=== PATIENT | male | born 1995 | race Caucasian/White ===

== ENCOUNTER 2017-07-08 18:28 | Emergency (ER) | payer MEDICAID ==
[2017-07-08 18:35] VITALS: BP 145/75
--- NOTE | 2017-07-08 19:04 | EDPHY ---
H & P Time Seen by Provider: 07/08/17 18:35 HPI/ROS: HPI Fall, right-sided chest injury. 21-year-old male on foot. Patient was recently released from nursing home. He reports that while in the nursing home shower he slipped and fell and struck the right mid lateral aspect of his chest wall on a chair in the shower. He reports pain to this area. No difficulty breathing. Denies hitting his head. Denies any extremity pain or other injury. ROS: Constitutional: No fever, no chills. No weakness. Respiratory: No cough. No shortness of breath. Cardiac: No chest pain, no palpitations. As above. Gastrointestinal: No abdominal pain, no vomiting, no diarrhea. Genitourinary: No hematuria. Musculoskeletal: No back pain. No neck pain. Denies extremity pain. Skin: No rashes. No lacerations or abrasions. Neurological: No headache. No focal weakness or altered sensation. Past medical history: Rib fractures on the right at age 14. Social history: Recently released from nursing home. Smoker. Here by himself. Denies alcohol. Physical Exam: General Appearance: Alert, no distress. This patient is responding to questions appropriately and in full sentences. This patient appears well- hydrated and well-nourished. Head: Normocephalic atraumatic. Face: Facial bones are stable on palpation. Eyes: Pupils equal and round and reactive to light, no pallor or injection. No lid erythema or edema. Respiratory: There are no retractions, lungs are clear to auscultation with good air movement bilaterally. Chest wall is stable to AP and lateral palpation. Vague and mild tenderness on palpation, mid axillary line, right lateral chest wall. No ecchymosis, edema, erythema or warmth noted on gross inspection. Nose step-off or crepitus noted on palpation of this area. Cardiovascular: Regular rate and rhythm. No murmur. Gastrointestinal: Abdomen is soft and nontender, no masses, bowel sounds normal. Neurological: Motor sensory function is intact. Cranial nerves are normal. Cerebellar function intact. Skin: Warm and dry, no rashes. No lacerations, abrasions or contusions. Musculoskeletal: Neck is supple and nontender. The trachea is midline. No midline cervical, thoracic, lumbar or sacral tenderness on palpation. No flank tenderness on palpation. Extremities are symmetrical, full range of motion. All joints in the bilateral upper and bilateral lower extremities range without pain or impingement. No tenderness on palpation of the long bones in the bilateral upper and bilateral lower extremities. Psychiatric: No agitation. No depression. Database: EKG: Imaging: Chest x-ray PA and lateral; the cardiac mediastinal silhouette is unremarkable. No evidence of infiltrate or pneumothorax. No evidence of rib fracture. No acute cardiopulmonary disease process noted. Interpreted by me. Procedures: Emergency department course: 7:00 p.m., discussed results of chest x-ray. Vital signs reviewed. Patient feels comfortable going home and I feel he is safe for discharge. Explained that he may have a contusion to his right mid rib area verses possibly nondisplaced fractures every are not seen on his x-ray. Regardless plan will be to start him on high-dose ibuprofen over the next few days. I discussed dosing with him. I will have him follow up with his primary care physician through [facility]. He feels comfortable with this plan return to emergency department precautions discussed with him. All of his questions were answered. He was discharged in good condition. Differential Diagnosis: The differential diagnosis on this patient includes but is not limited to nondisplaced right-sided rib fractures verses a chest wall contusion. Pneumothorax, other significant traumatic injury unlikely. This represents a partial list of diagnoses considered. These considerations are based on history , physical exam, past history, reassessment and diagnostic testing. Smoking Status: Current every day smoker Constitutional: Initial Vital Signs Temperature (C) 37.3 C 07/08/17 18:30 Heart Rate 101 H 07/08/17 18:30 Respiratory Rate 18 07/08/17 18:30 Blood Pressure 145/75 H 07/08/17 18:30 O2 Sat (%) 99 07/08/17 18:30 O2 Delivery Mode Room Air Allergies/Adverse Reactions: No Known Allergies Allergy (Unverified 07/08/17 18:35) Home Medications: Medication Instructions Recorded NK [No Known Home Meds] 07/08/17 Departure - Departure Disposition: Home, Routine, Self-Care Clinical Impression: Contusion of right chest wall Condition: Good Instructions: Rib Fracture (ED) Additional Instructions: Read and follow provided instructions. Follow-up with your primary care physician in 2-3 days for re-evaluation. Ibuprofen dosin mg every 6 hours with meals for the next 3 days only. Take only as needed for pain. Return to the emergency department for worsening symptoms, worsening pain, difficulty breathing or other serious concerns. Referrals: NONE *PRIMARY CARE P,. [Primary Care Provider] - As per Instructions [facility],. [Clinic] - As per Instructions
== END 2017-07-08 19:26 | disposition home or self-care (01) ==
DX: S20.211A Contusion of right front wall of thorax, initial encounter (principal); F17.200 Nicotine dependence, unspecified, uncomplicated; W01.198A Fall on same level from slipping, tripping and stumbling with subsequent striking against other object, initial encounter; Y92.149 Unspecified place in prison as the place of occurrence of the external cause

== ENCOUNTER 2018-08-25 00:41 | Emergency (ER) | payer MEDICAID | END 2018-08-25 03:06 | disposition home or self-care (01) ==